=== PATIENT | female | born 2000 | race American Indian/Alaskan Native ===

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

== ENCOUNTER 2019-02-13 02:26 | Emergency (ER) | payer OTHER ==
[2019-02-13] MEDS ORDERED: TYLENOL ONE (02:38)
[2019-02-13] MEDS ORDERED: TETRACAINE 0.5% ONE (02:47)
[2019-02-13] MEDS ORDERED: FUL-GLO OP ONE (02:53)
[2019-02-13] MEDS ORDERED: PERCOCET 5/325 PO ONE (02:53)
[2019-02-13] MEDS ORDERED: IBUPROFEN PO ONE (02:53)
--- NOTE | 2019-02-13 03:38 | Emergency Department Report ---
ED Eye Problem HPI - General Chief complaint: Eye Problems Stated complaint: L EYE PAIN Time Seen by Provider: 02/13/19 02:52 Source: patient Mode of arrival: Ambulatory Limitations: No Limitations - History of Present Illness Initial comments: 19-year-old -[place] female presents to the emergency room for right eye pain. It was reported that patient at place an old contact in her right eye. Patient started to have excruciating eye pain. Patient was brought to the emergency room by her father. Father reports the patient was recently diagnosed with schizophrenia. MD chief complaint: eye pain, eye redness -: During the night Onset Description: sudden Location: right eye Place: home Eye Symptoms: redness, pain Severity: severe Severity scale (0 -10): 10 If Pain, Quality: sharp, aching, throbbing Consistency: constant Associated Symptoms: none Treatments Prior to Arrival: removed contact lens - Related Data Previous Rx's Medication Instructions Recorded Last Taken Type Amoxicillin [Trimox CAP] 500 mg PO Q8H #30 capsule 09/17/18 Unknown Rx Erythromycin [Erythromycin Ophth 1 applic OD QID #1 tube 02/13/19 Unknown Rx Oint] HYDROcodone/APAP 5-325 [[place] 1 each PO Q6HR PRN #12 tablet 02/13/19 Unknown Rx 5/325] Ibuprofen [Motrin 600 MG tab] 600 mg PO Q6H #100 tablet 02/13/19 Unknown Rx Allergies Allergy/AdvReac Type Severity Reaction Status Date / Time No Known Allergies Allergy Unverified 09/05/14 08:40 ED Review of Systems ROS: Stated complaint: L EYE PAIN Other details as noted in HPI Comment: All other systems reviewed and negative Eyes: eye pain ED Past Medical Hx - Past Medical History Previous Medical History?: Yes Hx Hypertension: No Hx Congestive Heart Failure: No Hx Diabetes: No Hx Deep Vein Thrombosis: No Hx Renal Disease: No Hx Sickle Cell Disease: No Hx Seizures: No Hx Psychiatric Treatment: Yes (schizophrenia) Hx Asthma: No Hx COPD: No Hx HIV: No Additional medical history: Had Implanon for control 3-4 years ago - Surgical History Past Surgical History?: Yes Additional Surgical History: tubes in ears now removed. - Social History Smoking Status: Current Every Day Smoker Substance Use Type: None - Medications Home Medications: Home Medications Medication Instructions Recorded Confirmed Last Taken Type Amoxicillin [Trimox CAP] 500 mg PO Q8H #30 capsule 09/17/18 Unknown Rx Erythromycin [Erythromycin Ophth 1 applic OD QID #1 tube 02/13/19 Unknown Rx Oint] HYDROcodone/APAP 5-325 [[place] 1 each PO Q6HR PRN #12 tablet 02/13/19 Unknown Rx 5/325] Ibuprofen [Motrin 600 MG tab] 600 mg PO Q6H #100 tablet 02/13/19 Unknown Rx ED Physical Exam - General Limitations: No Limitations General appearance: alert, in no apparent distress - Head Head exam: Present: atraumatic, normocephalic - Expanded Eye Exam Expanded Eyelids: Normal Inspection: Right Pupils: Regular, Round: Right Sclera/Conjunctival: Injection: Right IOP measured with: other (fluorescein exam shows uptake to the right cornea) - Neck Neck exam: Present: normal inspection - Neurological Exam Neurological exam: Present: alert, oriented X3 - Psychiatric Psychiatric exam: Present: normal affect, normal mood - Skin Skin exam: Present: warm, dry, intact, normal color. Absent: rash ED Course Vital Signs 02/13/19 02:33 Temperature 98.1 F Pulse Rate 124 H Respiratory 20 Rate Blood Pressure 123/98 O2 Sat by Pulse 98 Oximetry ED Medical Decision Making - Medical Decision Making Patient has been evaluated by this provider. Fluorescein exam shows patient has a corneal abrasion to the right cornea. We'll place patient on erythromycin ophthalmic ointment and to follow-up with an pig breeder. Critical care attestation.: If time is entered above; I have spent that time in minutes in the direct care of this critically ill patient, excluding procedure time. ED Disposition Clinical Impression: Corneal abrasion, right Qualifiers: Encounter type: initial encounter Qualified Code(s): S05.01XA - Injury of conjunctiva and corneal abrasion without foreign body, right eye, initial encounter Disposition: -01 TO HOME OR SELFCARE Is pt being admited?: No Does the pt Need Aspirin: No Condition: Stable Instructions: Corneal Abrasion (ED) Additional Instructions: Please use antibiotic eye ointment to eye as prescribed. It is very important for you to follow-up with an pig breeder I have listed several below for you to follow up with. Failure to follow-up with an pig breeder can lead to permanent damage and even blindness. Prescriptions: Erythromycin [Erythromycin Ophth Oint] 1 applic OD QID #1 tube Ibuprofen [Motrin 600 MG tab] 600 mg PO Q6H #100 tablet HYDROcodone/APAP 5-325 [[place] 5/325] 1 each PO Q6HR PRN #12 tablet PRN Reason: Pain Referrals: BASILIO MORROW MD [Primary Care Provider] - 3-5 Days CARL SESAY MD [Staff Physician] - 3-5 Days [facility] [Provider Group] - 3-5 Days [facility] [Provider Group] - 3-5 Days Forms: Accompanied Note
[2019-02-13 04:15] VITALS: BP 116/75
[2019-02-13] MEDS ORDERED: TETRACAINE 0.5% OU PRN (07:00)
== END 2019-02-13 04:11 | disposition home or self-care (01) ==
LOC: ED 02:26
DX: S05.01XA Injury of conjunctiva and corneal abrasion without foreign body, right eye, initial encounter (principal); F20.9 Schizophrenia, unspecified; F17.200 Nicotine dependence, unspecified, uncomplicated; Z98.890 Other specified postprocedural states; X58.XXXA Exposure to other specified factors, initial encounter; Y93.89 Activity, other specified; Y92.009 Unspecified place in unspecified non-institutional (private) residence as the place of occurrence of the external cause; Y99.8 Other external cause status

== ENCOUNTER 2019-03-24 12:05 | Emergency (ER) | payer SELFPAY | END 2019-03-24 12:09 | disposition left against medical advice (07) | LOC: ED 12:05 | DX: M25.511 Pain in right shoulder (principal); Z53.21 Procedure and treatment not carried out due to patient leaving prior to being seen by health care provider ==

== ENCOUNTER 2019-09-14 15:13 | Emergency (ER) | payer MEDICAID ==
--- NOTE | 2019-09-14 15:40 | Event Note ---
ED Screening Note ED Screening Note: pt states she has SI states she has lightheadedness, anxiety she denies any specific plan no access to weapons no HI hearing voices telling her to kill herself, breaking a covenant +visual hallucinations states she has been in a facility before PMHx schizophrenia she is on zyprexa, states she has been taking it +smoker +marijuana This initial assessment/diagnostic orders/clinical plan/treatment(s) is/are subject to change based on patients health status, clinical progression and re- assessment by fellow clinical providers in the ED. Further treatment and workup at subsequent clinical providers discretion. Patient/guardian urged not to elope from the ED as their condition may be serious if not clinically assessed and managed. Initial orders include: mental health protocol 1013 signed
[2019-09-14 16:13] LABS: Basophils % (Auto) 0.2 % (0.0-1.8); Eosinophils % (Auto) 0.2 % (0.0-4.3); Hematocrit 41.5 % (30.3-42.9); Hemoglobin 13.3 gm/dl (10.1-14.3); Lymphocytes # (Auto) 2.3 K/mm3 (1.2-5.4); Lymphocytes % (Auto) 22.8 % (13.4-35.0); Mean Corpuscular HGB Conc 32 % (30-34); Mean Corpuscular Volume 80 fl (79-97); Monocytes # (Auto) 0.5 K/mm3 (0.0-0.8); Monocytes % (Auto) 4.9 % (0.0-7.3); Platelet Count 317 K/mm3 (140-440); Red Blood Count 5.18 M/mm3 (3.65-5.03); Red Cell Distribution Width 13.7 % (13.2-15.2)
[2019-09-14 16:36] LABS: Alanine Aminotransferase 11 units/L (7-56); Albumin 4.2 g/dL (3.9-5); BUN/Creatinine Ratio 12; Blood Urea Nitrogen 11 mg/dL (7-17); Calcium 9.3 mg/dL (8.4-10.2); Hemolysis Index 5
[2019-09-14 19:50] LABS: Color,Urine Yellow (Yellow); PH,Urine 7.5 (5.0-7.0)
[2019-09-14 19:51] LABS: Bacteria,Urine 1+ /HPF (Negative); Ictotest,Urine Negative (Negative)
[2019-09-14 20:00] LABS: Amphetamine Screen,Urine PRESUMPTIVE NEGATIVE; Benzodiazepines Screen,Urine PRESUMPTIVE NEGATIVE; Cocaine Screen,Urine PRESUMPTIVE NEGATIVE; Methadone Screen,Urine PRESUMPTIVE NEGATIVE; Opiate Screen,Urine PRESUMPTIVE NEGATIVE
[2019-09-14 20:13] LABS: Cannabinoid Screen,Urine PRESUMPTIVE POSITIVE
--- NOTE | 2019-09-14 20:58 | Emergency Department Report ---
ED General Adult HPI - General Chief complaint: Psych Stated complaint: SOB/SI THOUGHTS Time Seen by Provider: 09/14/19 15:37 Source: EMS Mode of arrival: Ambulatory Limitations: Other - History of Present Illness Initial comments: The patient presents to the emergency department with a chief complaint of suicidal ideations. Patient states she has a history of bipolar and schizoaffective disorder with paranoia. Patient states she is not consistent wi th her psychiatric medications. Patient states she has one no force to hurt herself. Patient denies having a plan. -: unknown Severity scale (0 -10): 0 Improves with: none Worsens with: none Associated Symptoms: denies other symptoms Treatments Prior to Arrival: none - Related Data Home Medications Medication Instructions Recorded Confirmed Last Taken Ziprasidone HCl 40 mg PO BID 09/14/19 09/14/19 Unknown Allergies Allergy/AdvReac Type Severity Reaction Status Date / Time No Known Allergies Allergy Verified 09/14/19 15:24 ED Review of Systems ROS: Stated complaint: SOB/SI THOUGHTS Other details as noted in HPI Comment: All other systems reviewed and negative Constitutional: denies: chills, fever Eyes: denies: eye pain, eye discharge, vision change ENT: denies: ear pain, throat pain Respiratory: denies: cough, shortness of breath, wheezing Cardiovascular: denies: chest pain, palpitations Endocrine: no symptoms reported Gastrointestinal: denies: abdominal pain, nausea, diarrhea Genitourinary: denies: urgency, dysuria, discharge Musculoskeletal: denies: back pain, joint swelling, arthralgia Skin: denies: rash, lesions Neurological: denies: headache, weakness, paresthesias Psychiatric: auditory hallucinations, suicidal thoughts. denies: anxiety, depression, visual hallucinations, homicidal thoughts Hematological/Lymphatic: denies: easy bleeding, easy bruising ED Past Medical Hx - Past Medical History Hx Hypertension: No Hx Congestive Heart Failure: No Hx Diabetes: No Hx Deep Vein Thrombosis: No Hx Renal Disease: No Hx Sickle Cell Disease: No Hx Seizures: No Hx Psychiatric Treatment: Yes (schizophrenia) Hx Asthma: No Hx COPD: No Hx HIV: No Additional medical history: Had Implanon for control 3-4 years ago - Surgical History Additional Surgical History: tubes in ears now removed. - Social History Smoking Status: Current Every Day Smoker Substance Use Type: Marijuana - Medications Home Medications: Home Medications Medication Instructions Recorded Confirmed Last Taken Type Ziprasidone HCl 40 mg PO BID 09/14/19 09/14/19 Unknown History ED Physical Exam - General Limitations: Other General appearance: alert, in no apparent distress - Head Head exam: Present: atraumatic, normocephalic - Eye Eye exam: Present: normal appearance, PERRL, EOMI - ENT ENT exam: Present: mucous membranes moist - Neck Neck exam: Present: normal inspection - Respiratory Respiratory exam: Present: normal lung sounds bilaterally. Absent: respiratory distress - Cardiovascular Cardiovascular Exam: Present: regular rate, normal rhythm. Absent: systolic murmur, diastolic murmur, rubs, gallop - GI/Abdominal GI/Abdominal exam: Present: soft, normal bowel sounds. Absent: distended, tenderness - Extremities Exam Extremities exam: Present: normal inspection - Back Exam Back exam: Present: normal inspection - Neurological Exam Neurological exam: Present: alert, oriented X3, CN II-XII intact. Absent: motor sensory deficit - Psychiatric Psychiatric exam: Present: normal affect, normal mood, suicidal ideation. Absent: homicidal ideation - Skin Skin exam: Present: warm, dry, intact, normal color. Absent: rash ED Course Vital Signs 09/14/19 09/14/19 09/15/19 15:37 20:00 01:00 Temperature 98.6 F 98.7 F 99.2 F Pulse Rate 76 69 79 Respiratory 20 16 18 Rate Blood Pressure 107/69 99/56 111/60 [Right] O2 Sat by Pulse 97 99 96 Oximetry ED Medical Decision Making - Lab Data Result diagrams: 09/14/19 15:45 09/14/19 15:45 Lab Results 09/14/19 09/14/19 09/14/19 Range/Units 15:45 15:45 15:45 WBC 10.0 (4.5-11.0) K/mm3 RBC 5.18 H (3.65-5.03) M/mm3 Hgb 13.3 (10.1-14.3) gm/dl Hct 41.5 (30.3-42.9) % MCV 80 (79-97) fl MCH 26 L (28-32) pg MCHC 32 (30-34) % RDW 13.7 (13.2-15.2) % Plt Count 317 (140-440) K/mm3 Lymph % (Auto) 22.8 (13.4-35.0) % Tillman % (Auto) 4.9 (0.0-7.3) % Eos % (Auto) 0.2 (0.0-4.3) % Baso % (Auto) 0.2 (0.0-1.8) % Lymph # 2.3 (1.2-5.4) K/mm3 Tillman # 0.5 (0.0-0.8) K/mm3 Eos # 0.0 (0.0-0.4) K/mm3 Baso # 0.0 (0.0-0.1) K/mm3 Seg Neutrophils % 71.9 H (40.0-70.0) % Seg Neutrophils # 7.2 (1.8-7.7) K/mm3 Sodium 140 (137-145) mmol/L Potassium 4.0 (3.6-5.0) mmol/L Chloride 104.1 (98-107) mmol/L Carbon Dioxide 20 L (22-30) mmol/L Anion Gap 20 mmol/L BUN 11 (7-17) mg/dL Creatinine 0.9 (0.7-1.2) mg/dL Estimated GFR > 60 ml/min BUN/Creatinine Ratio 12 % Glucose 102 H (65-100) mg/dL Calcium 9.3 (8.4-10.2) mg/dL Total Bilirubin 0.30 (0.1-1.2) mg/dL AST 12 (5-40) units/L ALT 11 (7-56) units/L Alkaline Phosphatase 92 (35-129) units/L Total Creatine Kinase 108 (30-135) units/L Total Protein 7.5 (6.3-8.2) g/dL Albumin 4.2 (3.9-5) g/dL Albumin/Globulin Ratio 1.3 % HCG, Qual (Negative) Urine Color (Yellow) Urine Turbidity (Clear) Urine pH (5.0-7.0) Urine Protein (Negative) mg/dL Urine Glucose (UA) (Negative) mg/dL Urine Ketones (Negative) mg/dL Urine Nitrite (Negative) Urine Ictotest (Negative) Urine Urobilinogen (<2.0) mg/dL Ur Leukocyte Esterase (Negative) Urine WBC (Auto) (0.0-6.0) /HPF Urine RBC (Auto) (0.0-6.0) /HPF Urine Bacteria (Auto) (Negative) /HPF Salicylates < 0.3 L (2.8-20.0) mg/dL Urine Opiates Screen Urine Methadone Screen Acetaminophen (10.0-30.0) ug/mL Ur Barbiturates Screen Ur Phencyclidine Scrn Ur Amphetamines Screen U Benzodiazepines Scrn Urine Cocaine Screen U Marijuana (THC) Screen Drugs of Abuse Note Plasma/Serum Alcohol (0-0.07) % 09/14/19 09/14/19 09/14/19 Range/Units 15:45 15:45 15:45 WBC (4.5-11.0) K/mm3 RBC (3.65-5.03) M/mm3 Hgb (10.1-14.3) gm/dl Hct (30.3-42.9) % MCV (79-97) fl MCH (28-32) pg MCHC (30-34) % RDW (13.2-15.2) % Plt Count (140-440) K/mm3 Lymph % (Auto) (13.4-35.0) % Tillman % (Auto) (0.0-7.3) % Eos % (Auto) (0.0-4.3) % Baso % (Auto) (0.0-1.8) % Lymph # (1.2-5.4) K/mm3 Tillman # (0.0-0.8) K/mm3 Eos # (0.0-0.4) K/mm3 Baso # (0.0-0.1) K/mm3 Seg Neutrophils % (40.0-70.0) % Seg Neutrophils # (1.8-7.7) K/mm3 Sodium (137-145) mmol/L Potassium (3.6-5.0) mmol/L Chloride (98-107) mmol/L Carbon Dioxide (22-30) mmol/L Anion Gap mmol/L BUN (7-17) mg/dL Creatinine (0.7-1.2) mg/dL Estimated GFR ml/min BUN/Creatinine Ratio % Glucose (65-100) mg/dL Calcium (8.4-10.2) mg/dL Total Bilirubin (0.1-1.2) mg/dL AST (5-40) units/L ALT (7-56) units/L Alkaline Phosphatase (35-129) units/L Total Creatine Kinase (30-135) units/L Total Protein (6.3-8.2) g/dL Albumin (3.9-5) g/dL Albumin/Globulin Ratio % HCG, Qual Negative (Negative) Urine Color (Yellow) Urine Turbidity (Clear) Urine pH (5.0-7.0) Urine Protein (Negative) mg/dL Urine Glucose (UA) (Negative) mg/dL Urine Ketones (Negative) mg/dL Urine Nitrite (Negative) Urine Ictotest (Negative) Urine Urobilinogen (<2.0) mg/dL Ur Leukocyte Esterase (Negative) Urine WBC (Auto) (0.0-6.0) /HPF Urine RBC (Auto) (0.0-6.0) /HPF Urine Bacteria (Auto) (Negative) /HPF Salicylates (2.8-20.0) mg/dL Urine Opiates Screen Urine Methadone Screen Acetaminophen < 5.0 L (10.0-30.0) ug/mL Ur Barbiturates Screen Ur Phencyclidine Scrn Ur Amphetamines Screen U Benzodiazepines Scrn Urine Cocaine Screen U Marijuana (THC) Screen Drugs of Abuse Note Plasma/Serum Alcohol < 0.01 (0-0.07) % 09/14/19 09/14/19 Range/Units 19:26 19:26 WBC (4.5-11.0) K/mm3 RBC (3.65-5.03) M/mm3 Hgb (10.1-14.3) gm/dl Hct (30.3-42.9) % MCV (79-97) fl MCH (28-32) pg MCHC (30-34) % RDW (13.2-15.2) % Plt Count (140-440) K/mm3 Lymph % (Auto) (13.4-35.0) % Tillman % (Auto) (0.0-7.3) % Eos % (Auto) (0.0-4.3) % Baso % (Auto) (0.0-1.8) % Lymph # (1.2-5.4) K/mm3 Tillman # (0.0-0.8) K/mm3 Eos # (0.0-0.4) K/mm3 Baso # (0.0-0.1) K/mm3 Seg Neutrophils % (40.0-70.0) % Seg Neutrophils # (1.8-7.7) K/mm3 Sodium (137-145) mmol/L Potassium (3.6-5.0) mmol/L Chloride (98-107) mmol/L Carbon Dioxide (22-30) mmol/L Anion Gap mmol/L BUN (7-17) mg/dL Creatinine (0.7-1.2) mg/dL Estimated GFR ml/min BUN/Creatinine Ratio % Glucose (65-100) mg/dL Calcium (8.4-10.2) mg/dL Total Bilirubin (0.1-1.2) mg/dL AST (5-40) units/L ALT (7-56) units/L Alkaline Phosphatase (35-129) units/L Total Creatine Kinase (30-135) units/L Total Protein (6.3-8.2) g/dL Albumin (3.9-5) g/dL Albumin/Globulin Ratio % HCG, Qual (Negative) Urine Color Yellow (Yellow) Urine Turbidity Hazy (Clear) Urine pH 7.5 H (5.0-7.0) Urine Protein 100 mg/dl (Negative) mg/dL Urine Glucose (UA) Negative (Negative) mg/dL Urine Ketones Negative (Negative) mg/dL Urine Nitrite Negative (Negative) Urine Ictotest Negative (Negative) Urine Urobilinogen 4.0 (<2.0) mg/dL Ur Leukocyte Esterase Negative (Negative) Urine WBC (Auto) 4.0 (0.0-6.0) /HPF Urine RBC (Auto) 6.0 (0.0-6.0) /HPF Urine Bacteria (Auto) 1+ (Negative) /HPF Salicylates (2.8-20.0) mg/dL Urine Opiates Screen Presumptive negative Urine Methadone Screen Presumptive negative Acetaminophen (10.0-30.0) ug/mL Ur Barbiturates Screen Presumptive negative Ur Phencyclidine Scrn Presumptive negative Ur Amphetamines Screen Presumptive negative U Benzodiazepines Scrn Presumptive negative Urine Cocaine Screen Presumptive negative U Marijuana (THC) Screen Presumptive positive Drugs of Abuse Note Disclamer Plasma/Serum Alcohol (0-0.07) % - Medical Decision Making medically cleared 1013 applied Critical care attestation.: If time is entered above; I have spent that time in minutes in the direct care of this critically ill patient, excluding procedure time. ED Disposition Clinical Impression: Suicidal ideations Disposition: DC/TX-65 PSY HOSP/PSY UNIT Is pt being admited?: No Does the pt Need Aspirin: No Condition: Stable Referrals: PRIMARY CARE, [Primary Care Provider] - 3-5 Days
[2019-09-15] MEDS ORDERED: LORazepam 1 MG TAB PO ONE (09:33)
--- NOTE | 2019-09-15 10:40 | Consultation ---
History of Present Illness - Reason for Consult Consult date: 09/15/19 Reason for consult: Mental Health Evaluation Requesting physician: KALEB BRAR - Chief Complaint Chief complaint: "I want the voices to stop" - History of Present Psychiatric Illness 19 y.o. AA female who presented to the ER for SI's. Today the patient was somewhat calm during the assessment. She stated that something is going on at her home reference a balcony. She stated that she's afraid to be there for some reason (home). She stated that she isn't suicidal, but hear voices often that interfere with her sleep. She did acknowledged SI's one on arrival to the ER when asked. She stated that her main issue now are the voices, but could not elaborate to me the provider what they are saying. She stated that she feel anxious about her current situation. She denies SI/HI's and VH's. She acknowledged marijuana use, but denies alcohol consumption (etoh). Medications and Allergies Allergies Allergy/AdvReac Type Severity Reaction Status Date / Time No Known Allergies Allergy Verified 09/14/19 15:24 Home Medications Medication Instructions Recorded Confirmed Last Taken Type Ziprasidone HCl 40 mg PO BID 09/14/19 09/14/19 Unknown History Past psychiatric history - Past Medical History Past Medical History: No medical history Past Surgical History: No surgical history - past Psychiatric treatment and history psychiatric treatment history: hx of substance abuse. Denies a fam psy hx. - Social History Social history: lives with family Mental Status Exam - Vital signs Last Vital Signs Temp 98.8 F 09/15/19 07:00 Pulse 96 H 09/15/19 09:31 Resp 14 09/15/19 07:00 BP 117/67 09/15/19 09:31 Pulse Ox 98 09/15/19 07:00 - Exam Narrative exam: MSE: Appearance: in hospital attire Behavior: regular eye contact Speech: regular rate and tone Mood: "not well" Affect: flat Thought Process: circumstantial Thought Content: denies SI/HI's and VH's, paranoia Motor Activity: lying in bed Cognition: A/O x3 Insight: variable Judgment: poor Results Result Diagrams: 09/14/19 15:45 09/14/19 15:45 Abnormal lab results 09/14/19 09/14/19 09/14/19 Range/Units 15:45 15:45 15:45 RBC 5.18 H (3.65-5.03) M/mm3 MCH 26 L (28-32) pg Seg Neutrophils % 71.9 H (40.0-70.0) % Carbon Dioxide 20 L (22-30) mmol/L Glucose 102 H (65-100) mg/dL Urine pH (5.0-7.0) Salicylates < 0.3 L (2.8-20.0) mg/dL Acetaminophen (10.0-30.0) ug/mL 09/14/19 09/14/19 Range/Units 15:45 19:26 RBC (3.65-5.03) M/mm3 MCH (28-32) pg Seg Neutrophils % (40.0-70.0) % Carbon Dioxide (22-30) mmol/L Glucose (65-100) mg/dL Urine pH 7.5 H (5.0-7.0) Salicylates (2.8-20.0) mg/dL Acetaminophen < 5.0 L (10.0-30.0) ug/mL All other labs normal. 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 Today the patient was calm during the assessment. DDx: Bipolar DO, Substance Induced Mood/Psychotic DO Recommendation/Plan: Continue 1013 and start Zyprexa 2.5 mg PO HS, Depakote 500 mg PO BID for mood, and Buspar 7.5 mg PO BID for anxiety. Discussed possible metabolic side effects of Zyprexa with the patient, she verbalized understanding. Baseline A1c/Lipid Panel ordered. Dispo: The patient can follow up with [facility] for [facility] services. Will staff with Dr Kim Perez.
[2019-09-15] MEDS: busPIRone 5 MG TAB PO SCH ×2 (13:49→23:28)
[2019-09-15] MEDS: DIVALPROEX ER 500 MG TAB PO SCH ×2 (13:49→23:28)
[2019-09-16 07:39] LABS: Chol/HDL Ratio 4.75 %
[2019-09-16] MEDS: DIVALPROEX ER 500 MG TAB PO SCH ×2 (09:50→22:54)
[2019-09-16] MEDS: busPIRone 5 MG TAB PO SCH ×2 (09:50→22:54)
--- NOTE | 2019-09-16 14:00 | Progress Note ---
Subjective - Reason for Consult Consult date: 09/16/19 Reason for consult: Psychiatric Follow-up Evaluation - Chief Complaint Chief complaint: "I feel okay." Patient is a 19 y.o. AA female who presented to the ER for SI's. Today the patient is cooperative but anxious during the assessment. She endorses intermittent command auditory hallucinations telling her to kill herself. She verbalizes that she last had auditory hallucinations today that worsen with intensity, visual hallucinations of white lights, and paranoid delusions. She denies SI/HI's. Patient reports medication compliance. No side effects noted/reported. 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 Cannabis Use DO. Today the patient is cooperative but anxious during the assessment. She endorses psychosis. DDx: Bipolar DO, Substance Induced Mood/Psychotic DO Recommendation/Plan: 1. Continue 1013. 2. Increase Zyprexa 2.5mg po HS mood/psychosis. 3. Continue Depakote 500 mg PO BID for mood, and Buspar 7.5 mg PO BID for anxiety. Discussed possible metabolic side effects of Zyprexa with the patient, she verbalized understanding. Disposition: The patient can follow up with [facility] for outpatient psy services. Will staff with Dr. Kim Perez.
--- NOTE | 2019-09-17 08:45 | Progress Note ---
Subjective - Reason for Consult Consult date: 09/17/19 Reason for consult: Psychiatry Follow-up - Chief Complaint Chief complaint: "I'm feeling strange" 19 y.o. AA female who presented to the ER for SI's. Today the patient was somewhat calm during the assessment. She continue to state that she's hearing voices and feel "scared." She stated that the voices are telling her unsafe things to do to herself. She would not confirm or deny SI's. She denies HI's and VH's. She denies any side effects from her medication. 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 Today the patient was calm during the assessment. DDx: Bipolar DO, Substance Induced Mood/Psychotic DO Recommendation/Plan: Continue 1013, Zyprexa 2.5 mg PO HS, Depakote 500 mg PO BID for mood, and Buspar 7.5 mg PO BID for anxiety. Discussed possible metabolic side effects of Zyprexa with the patient, she verbalized understanding. Dispo: The patient was accepted at [facility] for inpatient psy services pending transport time. Staffed with Dr Kim Perez.
[2019-09-17] MEDS: DIVALPROEX ER 500 MG TAB PO SCH ×2 (11:37→23:59)
[2019-09-17] MEDS: busPIRone 5 MG TAB PO SCH ×2 (11:37→23:58)
--- NOTE | 2019-09-18 09:37 | Progress Note ---
Subjective - Reason for Consult Consult date: 09/18/19 Reason for consult: Psychiatry Follow-up - Chief Complaint Chief complaint: "I think I maybe doing better" 19 y.o. AA female who presented to the ER for SI's. Today the patient was calm during the assessment. She stated that she maybe getting better "mentally", but isn't sure. She was informed of her pending transfer to [facility], she stated, "okay." She denies SI/HI;s and AVH's. She denies any side effects of her medication. 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 Today the patient was calm during the assessment. DDx: Bipolar DO, Substance Induced Mood/Psychotic DO Recommendation/Plan: Continue 1013, Zyprexa 2.5 mg PO HS, Depakote 500 mg PO BID for mood, and Buspar 7.5 mg PO BID for anxiety. Discussed possible metabolic side effects of Zyprexa with the patient, she verbalized understanding. Dispo: The patient was accepted at [facility] for inpatient psy services. Will staff with Dr Kim Perez.
[2019-09-18 09:59] VITALS: BP 125/77
[2019-09-18] MEDS: busPIRone 5 MG TAB PO SCH (10:36)
[2019-09-18] MEDS: DIVALPROEX ER 500 MG TAB PO SCH (10:36)
== END 2019-09-18 11:28 ==
LOC: EEVIPCON 15:13 → ED 15:13
DX: F32.9 Major depressive disorder, single episode, unspecified (principal); F41.9 Anxiety disorder, unspecified; F12.10 Cannabis abuse, uncomplicated; F17.200 Nicotine dependence, unspecified, uncomplicated; F20.0 Paranoid schizophrenia; Z79.899 Other long term (current) drug therapy
CPT/HCPCS: 36415; 80053; 80061; 80164; 80307; 80320; 81001; 82150; 82550; 83036; 83690; 84703; 85025; G0480

== ENCOUNTER 2020-07-19 06:39 | Emergency (ER) | payer MEDICAID, OTHER ==
[2020-07-19 07:23] LABS: Basophils % (Auto) 0.3 % (0.0-1.8); Eosinophils % (Auto) 0.4 % (0.0-4.3); Hematocrit 39.6 % (30.3-42.9); Hemoglobin 13.1 gm/dl (10.1-14.3); Mean Corpuscular HGB Conc 33 % (30-34); Mean Corpuscular Volume 77 fl (79-97); Monocytes # (Auto) 0.5 K/mm3 (0.0-0.8); Monocytes % (Auto) 5.5 % (0.0-7.3); Platelet Count 340 K/mm3 (140-440); Red Blood Count 5.18 M/mm3 (3.65-5.03); Red Cell Distribution Width 13.9 % (13.2-15.2)
[2020-07-19 07:40] LABS: BUN/Creatinine Ratio 16; Blood Urea Nitrogen 13 mg/dL (7-17); Calcium 9.3 mg/dL (8.4-10.2); Hemolysis Index 9
== END 2020-07-19 07:30 | disposition left against medical advice (07) ==
LOC: ED 06:39
DX: R44.0 Auditory hallucinations (principal); Z53.21 Procedure and treatment not carried out due to patient leaving prior to being seen by health care provider
CPT/HCPCS: 36415; 80048; 80320; 84703; 85025; G0480

== ENCOUNTER 2022-03-17 21:40 | Emergency (ER) | payer SELFPAY ==
[2022-03-17 22:01] VITALS: BP 105/63
== END 2022-03-18 16:35 | disposition left against medical advice (07) ==
LOC: ED 21:40
DX: L50.9 Urticaria, unspecified (principal); Z53.21 Procedure and treatment not carried out due to patient leaving prior to being seen by health care provider